=== PATIENT | male | born 1975 | race Caucasian/White ===

== ENCOUNTER 2017-03-15 20:11 | Emergency (ER) | payer OTHER ==
[~2017-03-15] VITALS: Ht 162.6 cm; Wt 98.5 kg
[2017-03-15 20:18] VITALS: Ht 162.6 cm; Wt 98.5 kg
[2017-03-15] MEDS ORDERED: FLUORESCEIN STRIP BOTH EYES ONE (23:30)
[2017-03-15] MEDS ORDERED: TETRACAINE 0.5% 4 ML OPH BOTH EYES ONE (23:30)
[2017-03-15] MEDS ORDERED: CPR3OO3.5 BOTH EYES (23:38)
[2017-03-16 00:10] VITALS: BP 128/76; PULSE 66; RESP 20; TEMP 98.7
--- NOTE | 2017-03-17 19:15 | ERD ---
ER Documentation Chief Complaint Chief Complaint boh eye pain states bleach just touch his yes, no vision problem HPI Patient is a 41-year-old male presenting to the emergency department complaining of bilateral eye pain and burning intermittently for the past 3 days. He states 3 days ago he was washing his shower with bleach and he states he felt the fumes went into his eyes and they burned for a few minutes after but then this resolved. Since then, he has had some intermittent pain around his eyes but no significant eye redness, discharge, or other complaints. He denies any changes in vision. He does not wear glasses or contacts. Symptoms are mild in severity currently. ROS All systems reviewed and are negative except as per history of present illness. Medications Home Meds Active Scripts Ciprofloxacin Opht* (Ciloxan*) 0.3%-3.5 Opht Oint, 1 APPLIC BOTH EYES TID for 7 Days, #1 BOT Prov:LUCHO PONCE PA-C 03/15/17 Allergies Allergies: Coded Allergies: No Known Allergy (Unverified , 03/15/17) PMhx/Soc Medical and Surgical Hx: pt denies Medical Hx, pt denies Surgical Hx Hx Alcohol Use: No Hx Substance Use: No Smoking Status: Never smoker Physical Exam Vitals Vital Signs Date Time Temp Pulse Resp B/P Pulse Ox O2 Delivery O2 Flow Rate FiO2 03/16/17 00:10 98.7 66 20 128/76 100 03/15/17 20:18 98.8 95 20 134/76 100 Physical Exam Const: Nontoxic, well-appearing male in no acute distress. Head: Atraumatic Eyes: Normal Conjunctiva. Extraocular movements intact bilaterally. ENT: Normal External Ears, Nose and Mouth. Skin: No petechiae or rashes Ext: No cyanosis, or edema Neur: Awake and alert Psych: Normal Mood and Affect Results 24 hrs Current Medications Medications (Trade) Dose Ordered Sig/[place] Route PRN Reason Start Time Stop Time Status Last Admin Dose Admin Tetracaine HCl (Tetracaine 0.5% Steri-Unit Jaye) 1 drop ONCE ONCE BOTH EYES 03/15/17 23:30 03/15/17 23:31 DC Fluorescein Sodium (Ylxjj-A-Erngz) 1 strip ONCE ONCE BOTH EYES 03/15/17 23:30 03/15/17 23:31 DC Procedures/MDM 41-year-old male presents to the emergency department complaining he may have gotten bleach fumes in his eyes. This happened 3 days ago. There were no visual acuity deficits. Fluorescein stain to eyes bilaterally show no acute findings. The patient was given a prescription for ciprofloxacin ophthalmic drops to cover for possible corneal ulcer or abrasion. The patient was to have close follow-up with the [facility]. He understood the discharge plan a diagnosis. He was advised to return immediately for any new or worsening symptoms. No evidence to suggest life-threatening illness at time of discharge. Patient is to follow-up with his primary care physician within the next 1-2 days. Eye Exam w/ Wood's lamp: Visual Acuity: 20/20 in the left eye, 20/25 in the right eye, 20/20 bilaterally. Visual Hall: Intact in all four quadrants bilaterally Lac ducts/glands: No swelling Lids w/ evertion: Normal, no foreign body Conj/[place]: Clear, negative Fluorescein/Neris's Anterior Chamber: Clear Retina exam: No obvious abnormality Departure Diagnosis: Primary Impression: Conjunctivitis Conjunctivitis type: acute Acute conjunctivitis type: unspecified Laterality: bilateral Qualified Code: H10.33 - Acute conjunctivitis of both eyes, unspecified acute conjunctivitis type Condition: Fair Patient Instructions: Conjunctivitis, Non-Specific Referrals: [facility] Hours: Mon - Fri 9:00 AM - 5:00 PM Additional Instructions: Follow-up at [facility] as soon as possible. Follow up with your PCP within the next 1-3 days for a repeat evaluation. If you require a referral to a specialist, your Primary Care Provider may be able to provide this for you. In most patient cases, a referral is not required. If you have further questions regarding this matter, please ask your Primary Care Provider. Return the the emergency department immediately if symptoms worsen or change. If you have any questions regarding medications, ask your pharmacist or us before you leave. If any adverse reactions, occur while taking your medications, discontinue the treatment and return to the emergency department immediately. If any new or worsening symptoms, uncontrolled fevers, or other unexplained symptoms occur, return to the emergency department immediately. Take your medications as directed, and complete the entire course of treatment. LUCHO PONCE PA-C Mar 17, 2017 19:15
== END 2017-03-16 00:11 | disposition home or self-care (01) ==
LOC: FTE 20:11
DX: H10.33 Unspecified acute conjunctivitis, bilateral (principal)
CPT/HCPCS: 99283